=== PATIENT | male | born 1940 | race African-American/Black ===

== ENCOUNTER 2017-01-21 14:09 | Emergency (ER) | payer BC, MEDICARE ==
[~2017-01-21] VITALS: Ht 172.7 cm; Wt 72.6 kg
--- NOTE | 2017-01-21 14:15 | Emergency Room Report ---
History of Present Illness General Chief Complaint: Dizziness Source: Patient, EMS Present Illness HPI Patient presents with weakness. He was standing at a bank. He has a history of diabetes. He felt that his blood sugar was low. They checked his in the field and was 177. Pulse is 70 and irregular heartbeats and atrial fibrillation. He states he's had an irregular heartbeat in the past. He denies any trouble fibrillation. The patient denies fevers, chills, nausea, vomiting, diarrhea, dysuria, constipation, joint pain, headache. The patient has a history of subdural and had evacuation of this with parth holes. Many years ago - 2000 unclear as to why he had bleeding. He states he does not know. Not on any blood thinners at this time. Denies head trauma. Allergies: Coded Allergies: No Known Allergies (Unverified , 01/21/17) Patient History Past Medical History: see triage record Past Surgical History: other - parth holes for subdural Social History Narrative at home Reviewed Nursing Documentation: PMH: Agreed, PSxH: Agreed Nursing Documentation-PMH Past Medical History: No History, Except For Hx Cardiac Problems: Yes - irreg heartrate Hx Diabetes: Yes Review of Systems All Other Systems: negative except mentioned in HPI Physical Exam Vital Signs Date Time Temp Pulse Resp B/P Pulse Ox O2 Delivery O2 Flow Rate FiO2 01/21/17 14:02 98.1 91 18 151/82 98 Room Air Sp02 EP Interpretation: reviewed, normal General Appearance: well appearing, no apparent distress, GCS 15 Head: other - parth hole scars Eyes: bilateral eye EOMI, bilateral eye PERRL, bilateral eye normal inspection ENT: dry mucus membranes Neck: supple, no bony tend Respiratory: chest non-tender, lungs clear, normal breath sounds Cardiovascular #1: regular rate, rhythm Cardiovascular #2: 2+ radial (R) Gastrointestinal: normal inspection, normal bowel sounds, non tender, no mass, non-distended Musculoskeletal: back normal, gait/station normal, normal range of motion Neurologic: alert, oriented x3 - knows of wiretap accuisation, motor strength/ tone normal, DTRs symmetric, sensory intact, cerebellar normal, normal gait, speech normal - slow to respond Psychiatric: mood/affect normal Skin: normal inspection, warm/dry Medical Decision Making Diagnostic Impression: Primary Impression: Subdural hematoma Additional Impression: Diabetes Qualified Codes: E11.9 - Type 2 diabetes mellitus without complications; Z79.4 - residential (current) use of insulin ER Course Patient presents with weakness history of diabetes and irregular heartbeat. Differential includes acute ocular infarction, acute coronary syndrome, electrolyte imbalance, new [employer] event amounts others appear evaluation will be undertaken with CT head, chest x-ray, labs, EKG and urinalysis. The patient is denying symptomatology such weakness and feeling thirsty. He will also be given IV hydration. Patient labs are unremarkable except for glucose of 123. The patient's neurologic exam is unchanged. CT scan reveals a left frontal subdural hematoma. According to patient she denies any head trauma that he is aware of and still denies headache at this time. Discussed with Dr. Goodson at [facility] lead to his being accepted there. The patient is stable for transfer. The patient will be given a dose of Keppra prophylactically. Patient transferred ALS to [facility]. Laboratory Tests Test 01/21/17 15:30 White Blood Count 5.7 K/UL (4.8-10.8) Red Blood Count 4.13 M/UL (4.70-6.10) L Hemoglobin 11.4 G/DL (14.2-18.0) L Hematocrit 34.7 % (42.0-52.0) L Mean Corpuscular Volume 84 FL (80-99) Mean Corpuscular Hemoglobin 27.6 PG (27.0-31.0) Mean Corpuscular Hemoglobin Concent 32.9 G/DL (32.0-36.0) Red Cell Distribution Width 12.6 % (11.6-14.8) Platelet Count 264 K/UL (150-450) Mean Platelet Volume 5.9 FL (6.5-10.1) L Neutrophils (%) (Auto) 82.1 % (45.0-75.0) H Lymphocytes (%) (Auto) 12.9 % (20.0-45.0) L Monocytes (%) (Auto) 4.3 % (1.0-10.0) Eosinophils (%) (Auto) 0.1 % (0.0-3.0) Basophils (%) (Auto) 0.6 % (0.0-2.0) Prothrombin Time 10.6 SEC (9.30-11.50) Prothrombin Time INR 1.0 (0.9-1.1) PTT 23 SEC (23-33) Sodium Level 135 mEQ/L (135-145) Potassium Level 5.1 mEQ/L (3.4-4.9) H Chloride Level 95 mEQ/L (98-107) L Carbon Dioxide Level 25 mEQ/L (20-30) Anion Gap 15 (5-15) Blood Urea Nitrogen 13 mg/dL (7-23) Creatinine 0.9 mg/dL (0.7-1.2) Estimate Glomerular Filtration Rate mL/min (>60) Glucose Level 195 mg/dL (74-106) H Calcium Level 9.0 mg/dL (8.6-10.2) Total Bilirubin 0.2 mg/dL (0.0-1.2) Aspartate Amino Transferase (AST) 25 U/L (5-40) Alanine Aminotransferase (ALT) 15 U/L (3-41) Alkaline Phosphatase 64 U/L (40-129) Total Creatine Kinase 224 U/L (38-174) H Creatine Kinase MB 2.0 ng/mL (< 6.7) Creatine Kinase MB Relative Index 0.8 Troponin I < 0.30 ng/mL (<=0.30) Pro-B-Type Natriuretic Peptide 79 pg/mL (0-125) Total Protein 7.1 g/dL (6.6-8.7) Albumin 4.0 g/dL (3.5-5.2) Globulin 3.1 g/dL Albumin/Globulin Ratio 1.2 (1.0-2.7) EKG Diagnostic Results Rate: normal Rhythm: NSR ST Segments: other - LVH with ST elevation c/w this or early repolarization Rhythm Strip Diag. Results EP Interpretation: yes Rhythm: NSR, no PVC's, no ectopy Chest X-Ray Diagnostic Results EP Interpretation: Yes Findings: no consolidation, no effusion, no pneumothorax, no acute cardiopulmonary disease, other - possible nodule R Number of Views: 1 Last Vital Signs Date Time Temp Pulse Resp B/P Pulse Ox O2 Delivery O2 Flow Rate FiO2 01/21/17 18:38 90 16 153/81 100 Room Air 01/21/17 17:25 98.0 Status: improved Disposition: XFER SHT-TRM HOSP Condition: Serious - stable for transfer Russ Pierre M.D. Jan 21, 2017 14:15
[2017-01-21 15:07] VITALS: BP 164/85
[2017-01-21 16:00] LABS: BASOPHILS % (AUTO) 0.6 % (0.0-2.0); EOSINOPHILS % (AUTO) 0.1 % (0.0-3.0); LYMPHOCYTES % (AUTO) 12.9 % (20.0-45.0); MEAN CORPUSCULAR HEMOGLOBIN 27.6 PG (27.0-31.0); MEAN CORPUSCULAR HGB CONC 32.9 G/DL (32.0-36.0); MEAN CORPUSCULAR VOLUME 84 FL (80-99); MEAN PLATELET VOLUME 5.9 FL (6.5-10.1); MONOCYTES % (AUTO) 4.3 % (1.0-10.0); NEUTROPHILS % (AUTO) 82.1 % (45.0-75.0); PLATELET COUNT 264 K/UL (150-450); RED BLOOD COUNT 4.13 M/UL (4.70-6.10); RED CELL DISTRIBUTION WIDTH 12.6 % (11.6-14.8); WHITE BLOOD COUNT 5.7 K/UL (4.8-10.8)
[2017-01-21 16:04] LABS: PROTHROMBIN TIME 10.6 SEC (9.30-11.50)
[2017-01-21 16:13] LABS: TROPONIN I < 0.30 ng/mL (<=0.30)
[2017-01-21 16:14] LABS: ALANINE AMINOTRANSFERASE 15 U/L (3-41); ALBUMIN/GLOBULIN RATIO 1.2 (1.0-2.7); ANION GAP 15 (5-15); ASPARTATE AMINO TRANSFERASE 25 U/L (5-40); CARBON DIOXIDE 25 mEQ/L (20-30); CHLORIDE 95 mEQ/L (98-107); CREATININE 0.9 mg/dL (0.7-1.2); HEMOLYSIS 122; POTASSIUM 5.1 mEQ/L (3.4-4.9); SODIUM 135 mEQ/L (135-145); TOTAL PROTEIN 7.1 g/dL (6.6-8.7)
--- NOTE | 2017-01-21 16:47 | Diagnostic Imaging Report ---
Indications: Dizziness Technique: Spiral acquisitions obtained through the brain. Angled axial and coronal 5 x 5 mm slices were reconstructed. Total dose length product 1379 mGycm. CTDI vol(s) 70 mGy Comparison: None Findings: In the left inferior frontal region, there is a subdural hematoma that measures approximately 6 mm thick, extends approximately 4.7 cm along the anterior frontal convexity, and approximately 2.3 cm craniocaudad. This does not result in any significant mass effect No other acute hemorrhage or edema. No mass effect or midline shift. There are multiple old cranial parth holes, one in each in the bilateral high parietal regions and one each in the bilateral frontal calvarium. No calvarial fracture demonstrated. There is marked age-related enlargement of ventricles and extra axial CSF spaces. There is no significant extracranial soft tissue abnormality. There is a patent cavum septum pellucidum. Visualized orbits and sinuses are unremarkable. Impression: Small left inferior frontal subdural hematoma, as described. This does not result in any significant mass effect. This critical value was provided to the emergency room at the time of interpretation Chronic and age-related changes, as described The CT scanner at [facility] is accredited by the [employer] and the scans are performed using protocols designed to limit radiation exposure to as low as reasonably achievable to attain images of sufficient resolution adequate for diagnostic evaluation.
[2017-01-21] MEDS ORDERED: levETIRAcetam 500 MG in D5W 110 ML IVPB ONE (17:00)
[2017-01-21] MEDS ORDERED: levETIRAcetam 500mg vial IV ONE (17:07)
[2017-01-21 17:25] VITALS: BP 155/91
[2017-01-21 17:47] LABS: APPEARANCE,URINE CLEAR; KETONES,URINE NEGATIVE (NEGATIVE); LEUKOCYTE ESTERASE ,URINE 1+ (NEGATIVE); NITRITE,URINE NEGATIVE (NEGATIVE); PH,URINE 7 (4.5-8.0); PROTEIN,URINE 2+ (NEGATIVE); UROBILINOGEN,URINE NORMAL MG/DL (0.0-1.0)
[2017-01-21 17:56] LABS: BACTERIA,URINE FEW /HPF; RBC,URINE 0-2 /HPF (0 - 0)
--- NOTE | 2017-01-21 18:24 | Diagnostic Imaging Report ---
Indication: Chest pain Technique: One view of the chest Comparison: none Findings: Lungs and pleural spaces are clear. Heart size is normal. Impression: No acute process
[2017-01-21 18:38] VITALS: BP 153/81
--- NOTE | 2017-01-23 16:06 | Cardiology Report ---
APPROVED REPORT EKG Measurement Heart [id number] Normal sinus rhythm with sinus arrhythmia Voltage criteria for left ventricular hypertrophy ST elevation, probably due to early repolarization Abnormal ECG
== END 2017-01-21 18:42 | disposition short-term general hospital (02) ==
LOC: EDBD 14:09 → EMR 14:30
DX: S06.5X0A Traumatic subdural hemorrhage without loss of consciousness, initial encounter (principal); E11.9 Type 2 diabetes mellitus without complications; Z79.4 Long term (current) use of insulin; X58.XXXA Exposure to other specified factors, initial encounter; Y92.9 Unspecified place or not applicable; Y99.8 Other external cause status
CPT/HCPCS: 36415; 70450; 71010; 80053; 81003; 82550; 82553; 83880; 84484; 85025; 85610; 85730; 93005; 96360; 96374; 99285; J1953